=== PATIENT | male | born 1995 | race American Indian/Alaskan Native ===

== ENCOUNTER 2022-01-11 11:18 | Emergency (ER) | payer SELFPAY ==
[2022-01-12] MEDS ORDERED: DEXTROSE 10% *Hypoglycemia IV ONE (03:00)
== END 2022-01-12 00:05 | disposition left against medical advice (07) ==
LOC: ED 11:18
DX: Z04.1 Encounter for examination and observation following transport accident (principal); Z53.21 Procedure and treatment not carried out due to patient leaving prior to being seen by health care provider; V87.7XXA Person injured in collision between other specified motor vehicles (traffic), initial encounter; Y93.89 Activity, other specified; Y92.488 Other paved roadways as the place of occurrence of the external cause; Y99.8 Other external cause status
CPT/HCPCS: J3490